=== PATIENT | female | born 1975 | race Caucasian/White ===

== ENCOUNTER 2018-02-27 11:13 | Emergency (ER) | payer OTHER ==
[~2018-02-27] VITALS: Ht 157.5 cm; Wt 113.9 kg
== END 2018-02-27 14:00 | disposition home or self-care (01) ==
LOC: ER 11:13
DX: M75.52 Bursitis of left shoulder (principal); S43.085A Other dislocation of left shoulder joint, initial encounter; X58.XXXA Exposure to other specified factors, initial encounter; Y93.89 Activity, other specified; Y92.89 Other specified places as the place of occurrence of the external cause; Y99.8 Other external cause status

== ENCOUNTER 2022-12-24 11:21 | Outpatient (CLI) | payer OTHER | END 2022-12-24 11:25 | disposition home or self-care (01) | LOC: SONOGRAMA 11:21 | PROVIDERS: ATTEND Pathology Anatomic Pathology & Clinical Pathology | DX: D34 Benign neoplasm of thyroid gland (principal); E04.9 Nontoxic goiter, unspecified ==